=== PATIENT | female | born 1960 | race Caucasian/White ===

== ENCOUNTER 2019-08-11 14:43 | Outpatient (CLI) | payer OTHER, SELFPAY ==
[2019-08-11 15:10] LABS: Influenza Control Valid (Valid)
== END 2019-08-11 14:44 | disposition home or self-care (01) ==
LOC: CHSLAB 14:46
PROVIDERS: PCP Family Medicine; Visit Provider Family Medicine
DX: R68.89 Other general symptoms and signs (principal)
CPT/HCPCS: 87804

== ENCOUNTER 2019-12-09 14:08 | Outpatient (CLI) | payer OTHER, SELFPAY ==
--- NOTE | ~2019-12-09 | MM_ITS ---
EXAMINATION: MM screening cyndi BI w christine HISTORY: Screening mammogram TECHNIQUE: Craniocaudal and mediolateral oblique 3-D tomosynthesis images were obtained and synthetic 2-D images were generated. CAD analysis was submitted and interpreted. COMPARISON: Comparison to multiple prior studies sequentially, with oldest reviewed study dated 10/27. BREAST PARENCHYMAL COMPOSITION: There are scattered areas of fibroglandular density. FINDINGS: There are stable benign rest calcifications and bilateral breast nodules. There is no evide nce of suspicious mass, calcification, or architectural distortion to suggest malignancy in either br east. There has been no suspicious interval change. IMPRESSION: 1. No mammographic evidence of malignancy. 2. Recommend routine screening mammography in one year. BI-RADS Category 2: Benign finding(s). Reviewed, dictated and finalized at location A.
== END 2019-12-09 14:09 | disposition home or self-care (01) ==
LOC: CHSIMG 14:09
PROVIDERS: PCP Family Medicine; Visit Provider Family Medicine
DX: Z12.31 Encounter for screening mammogram for malignant neoplasm of breast (principal)
CPT/HCPCS: 77063; 77067

== ENCOUNTER 2020-01-23 15:31 | Emergency (ER) | payer OTHER, SELFPAY ==
[2020-01-23 15:35] VITALS: BP 157/75; PULSE 89; RESP 15; TEMP 37.1; O2SAT 95
--- NOTE | 2020-01-23 16:11 | ED.GENADULT ---
HPI - General Adult General Chief complaint: Ear Stated complaint: facial swelling Source: patient Mode of arrival: ambulatory Limitations: no limitations History of Present Illness HPI narrative: 59 y.o. diabetic has had right ear pain, onset 5 - 6 days ago. She also c/o pain in front of jaw, left frontal and maxillary sinus area, onset yesterday, worse today, #6/10. No fever/chills. No ear d.c. Cipro causes sores in mouth, on hands and stomach. Has occurred after taking ciprofloxacin on several occasions. Pt has chronic neck pain. No longer sees pain doctor. Takes Vicodin 4 -5x/day. Related Data Home Medications Medication Instructions Recorded Confirmed albuterol sulfate 2 puff INHALATION PRN 01/23/20 01/23/20 cetirizine 10 mg PO DAILY 01/23/20 01/23/20 dicyclomine 20 mg PO DAILY 01/23/20 01/23/20 duloxetine 20 mg PO DAILY 01/23/20 01/23/20 hydrocodone-acetaminophen 1 tablet PO PRN 01/23/20 01/23/20 latanoprost 1 drp OPHTHALMIC (EYE) PRN 01/23/20 01/23/20 levothyroxine 50 mcg PO DAILY 01/23/20 01/23/20 liraglutide [Victoza 2-Jonathan] 0.6 mg SUBCUT WEEKLY 01/23/20 01/23/20 lisinopril 20 mg PO DAILY 01/23/20 01/23/20 metformin 500 mg PO DAILY 01/23/20 01/23/20 simvastatin 20 mg PO DAILY 01/23/20 01/23/20 sitagliptin [Januvia] 100 mg PO DAILY 01/23/20 01/23/20 Allergies Allergy/AdvReac Type Severity Reaction Status Date / Time ciprofloxacin Allergy Unknown Unknown Verified 01/23/20 15:48 clarithromycin [From Biaxin] Allergy Unknown Unknown Verified 01/23/20 15:48 doxycycline Allergy Unknown Unknown Verified 01/23/20 15:48 levofloxacin Allergy Unknown Unknown Verified 01/23/20 15:48 Penicillins Allergy Unknown Unknown Verified 01/23/20 15:48 Sulfa (Sulfonamide Allergy Unknown Unknown Verified 01/23/20 15:48 Antibiotics) Review of Systems ENT: Comments: nasal congestion, sneezing. No ear drainage. PMFSH Past Medical History Medical History Asthma Diabetes GERD (gastroesophageal reflux disease) Hyperlipidemia Hypothyroid Family History Family History Father Family history of chronic obstructive pulmonary disease Mother Family history of coronary artery disease Family history of malignant neoplasm Sibling Cerebrovascular accident Social History Social History Smoking status: Never smoker Alcohol intake: current Exam Const: General: no acute distress Orientation/consciousness: patient oriented x3 HENMT: Other: No right auroc;e swelling. Pain with movement of right tragus. Right outer 1/3 of EAC is tender when touched with speculum. No eac canal redness, swelling or d.c. , R TM has normal landmarks. Left EAC and TM with normal landmarkds. Tender right frontal and maxillary sinus. Induration and tenderness, right inferior preauricular area. No redness or warmth. Neck: Neck: normal visual inspection and no lymphadenopathy Course Vital Signs Vital signs: Vital Signs Temperature 37.1 C 01/23/20 15:35 Pulse Rate 89 01/23/20 15:35 Respiratory Rate 15 01/23/20 15:35 Blood Pressure 157/75 H 01/23/20 15:35 Pulse Oximetry 95 01/23/20 15:35 Temperature 36.7 C 01/23/20 17:42 Pulse Rate 83 01/23/20 17:42 Respiratory Rate 20 01/23/20 17:42 Blood Pressure 169/72 H 01/23/20 17:42 Pulse Oximetry 96 01/23/20 17:42 Medical Decision Making MDM Narrative Medical decision making narrative: No ear canal swelling but it is very tender. The infection has not spread to the lobe or tragus, but swelling and tenderness over the angle if the jaw is concerning for early spread. She has sinus tenderness and hx of sinusitis. She may also have sinusitis. Unfortunately, she has a significant reaction to Cipro, and therefore likely other quinolones. Start tx. with antibiotic drops and Augmentin. Pt advised to have close follow up. Differential Diagnosis Differen
[2020-01-23 16:39] LABS: Hematocrit 42.4 % (35.0-49.0); Hemoglobin 13.9 g/dL (12.0-15.0); Mean Corpuscular HGB Conc 32.8 g/dL (32.0-36.0); Mean Corpuscular Hemoglobin 31.2 pg (27.0-31.0); Mean Corpuscular Volume 95.1 fL (78.0-102.0); Mean Platelet Volume 10.2 fl (9.2-11.8); Platelet Count Result 273 K/mm3 (150-420); Red Blood Count 4.46 M/mm3 (4.20-5.40); Red Cell Distribution Width 12.2 % (11.6-14.4)
[2020-01-23 16:49] LABS: Anion Gap 9 mmol/L (8-16); Blood Urea Nitrogen 13 mg/dL (7-18); Calcium 9.8 mg/dL (8.5-10.1); Carbon Dioxide 29 mmol/L (21-32); Chloride 104 mmol/L (98-108); Estimated CRCL calculation 72 ml/min; Estimated Glomerular Filt Rate 58; Glucose 109 mg/dL (70-99); Osmolality Calculated 295 mOsm/kg (285-295); Sodium 142 mmol/L (136-145)
[2020-01-23] MEDS: AMOXICILLIN/CLAVULANATE K 875-125 MG TAB 1 TABLET PO (17:26)
[2020-01-23 17:42] VITALS: BP 169/72; PULSE 83; RESP 20; TEMP 36.7; O2SAT 96
== END 2020-01-23 17:43 | disposition home or self-care (01) ==
PROVIDERS: Emergency Provider Family Medicine; PCP Family Medicine
DX: H60.91 Unspecified otitis externa, right ear (principal); J32.9 Chronic sinusitis, unspecified
CPT/HCPCS: 36415; 80048; 85027; 99283; A9270

== ENCOUNTER 2020-09-10 21:05 | Emergency (ER) | payer OTHER, SELFPAY ==
[2020-09-10 21:26] VITALS: BP 134/73; PULSE 118; RESP 20; TEMP 36.4; O2SAT 95
--- NOTE | 2020-09-10 22:08 | ED.GENADULT ---
HPI - General Adult General Chief complaint: Nausea/Vomiting/Diarrhea Stated complaint: sick to staomach and headache Source: patient Mode of arrival: ambulatory Limitations: no limitations History of Present Illness HPI narrative: Meme is a 59F with a PMH of GERD, HLD, HTN, DMII, and asthma that presented to the ED with abdominal pain, nausea and vomiting. She has been seeing a GI specialist for GERD. She reports a burning pain in her epigastric region as well cramping pain in her RUQ and above the right iliac crest. She reports 8 episodes of NBNB vomiting and a minor headache that came on gradually. No coffee ground emesis, hematemesis, constipation or diarrhea. No fevers, chills, SOB, or CP. Related Data Home Medications Medication Instructions Recorded Confirmed albuterol sulfate 2 puff INHALATION PRN 01/23/20 09/10/20 cetirizine 10 mg PO DAILY 01/23/20 09/10/20 dicyclomine 20 mg PO DAILY 01/23/20 09/10/20 duloxetine 20 mg PO DAILY 01/23/20 09/10/20 hydrocodone-acetaminophen 1 tablet PO PRN 01/23/20 09/10/20 latanoprost 1 drp OPHTHALMIC (EYE) PRN 01/23/20 09/10/20 levothyroxine 50 mcg PO DAILY 01/23/20 09/10/20 lisinopril 20 mg PO DAILY 01/23/20 09/10/20 metformin 1,000 mg PO BID 01/23/20 09/10/20 simvastatin 20 mg PO DAILY 01/23/20 09/10/20 sitagliptin [Januvia] 100 mg PO DAILY 01/23/20 09/10/20 empagliflozin [Jardiance] 25 mg PO DAILY 09/10/20 09/10/20 Allergies Allergy/AdvReac Type Severity Reaction Status Date / Time ciprofloxacin Allergy Unknown Unknown Verified 09/10/20 21:32 clarithromycin [From Biaxin] Allergy Unknown Unknown Verified 09/10/20 21:32 doxycycline Allergy Unknown Unknown Verified 09/10/20 21:32 levofloxacin Allergy Unknown Unknown Verified 09/10/20 21:32 Penicillins Allergy Unknown Unknown Verified 09/10/20 21:32 Sulfa (Sulfonamide Allergy Unknown Unknown Verified 09/10/20 21:32 Antibiotics) latex Allergy Unknown Verified 09/10/20 21:32 Review of Systems Constitutional: Constitutional: Reports no additional constitutional complaints Eyes: Eyes: Reports no additional eye complaints ENT: Reports system reviewed and no additional complaints, except as documented Cardiovascular: Cardiovascular: Reports no additional cardiovascular complaints Respiratory: Respiratory: Reports no additional respiratory complaints Gastrointestinal: Gastrointestinal: Reports as per HPI Genitourinary: Genitourinary: Reports no additional female genitourinary complaints Musculoskeletal: Musculoskeletal: Reports no additional musculoskeletal complaints Integumentary/Breasts: Skin/Breast: Reports system reviewed and no additional complaints, except as docu Neurologic: Reports system reviewed and no additional complaints, except as documented Psychiatric: Psychiatric: Reports no additional psychiatric complaints Endocrine: Endocrine: Reports no additional endocrine complaints Hematologic/Lymphatic: Hematologic/Lymphatic: Reports no additional hematologic/lymphatic complaints Allergic/Immunologic: Allergic/Immunologic: Reports no additional allergic/immunologic complaints [facility] Past Medical History Medical History (Updated 09/10/20 @ 23:12 by Vitor Toledo DO) Asthma Diabetes GERD (gastroesophageal reflux disease) Hyperlipidemia Hypothyroid Family History Family History Father Family history of chronic obstructive pulmonary disease Mother Family history of coronary artery disease Family history of malignant neoplasm Sibling Cerebrovascular accident Social History Social History Smoking status: Never smoker Alcohol intake: current Gender identity (if verbalized by the patient): Female Exam Const: General: alert Orientation/consciousness: patient oriented x3 Limitations: No altered mental status Other: In mild distress. Was hunched over holding a vomit bag HENMT:
[2020-09-10] MEDS: ONDANSETRON INJ 4 MG/2 ML VIAL IV PUSH (22:15)
[2020-09-10] MEDS: SODIUM CHLORIDE 0.9% IV 1,000 ML 999 ML IV CONT (22:15)
[2020-09-10] MEDS: MAG HYDROX/ALUMINUM HYD/SIMETH 30 ML, PHENobarb/HYOSCY/ATROPINE/SCOP 32.4 MG, LIDOCAINE... PO (22:15)
[2020-09-10 22:21] LABS: Basophils Percent Auto 0.9 % (0.0-1.0); Eosinophils Absolute Auto 0.08 K/mm3 (0.02-0.50); Eosinophils Percent Auto 0.7 % (1.0-6.0); Hematocrit 51.3 % (35.0-49.0); Hemoglobin 16.4 g/dL (12.0-15.0); Immature Granulocyte Absolute 0.04 K/mm3 (0.00-0.00); Immature Granulocyte Percent A 0.4 % (0.0-0.0); Lymphocytes Absolute Auto 0.46 K/mm3 (1.10-4.50); Lymphocytes Percent Auto 4.3 % (18.0-42.0); Mean Corpuscular Hemoglobin 30.3 pg (27.0-31.0); Mean Corpuscular Volume 94.8 fL (78.0-102.0); Mean Platelet Volume 11.9 fl (9.2-11.8); Monocytes Absolute Auto 0.36 K/mm3 (0.10-0.90); Monocytes Percent Auto 3.3 % (2.0-11.0); Neutrophils Absolute Auto 9.8 K/mm3 (1.7-7.2); Neutrophils Percent Auto 90.4 % (50.0-70.0); Platelet Count Result 303 K/mm3 (150-420); Red Blood Count 5.41 M/mm3 (4.20-5.40); White Blood Count 10.8 K/mm3 (4.8-10.8)
[2020-09-10 22:37] LABS: Add Urine Microscopic? YES; Appearance Urine Clear (Clear); Bilirubin Urine 1+ (Negative); Blood Urine Negative (Negative); Color Urine Yellow (Yellow); Glucose Urine UA 3+ (Negative); Ketones Urine 1+ (Negative); Leukocyte Esterase Ur Negative (Negative); Nitrate Urine Negative (Negative); Protein Urine Negative (Negative); Urobilinogen Urine 0.2 mg/dL (0.2-1.0); pH Urine 5.5 (5.0-8.0)
[2020-09-10 22:49] LABS: Bacteria Urine Trace /hpf; RBC Urine None seen /hpf (0-2); Squamous Epithelial Cell Urine Few /hpf (Few); WBC Urine None seen /hpf (0-3)
[2020-09-10 22:55] LABS: Alanine Aminotransferase 84 U/L (14-59); Albumin Level 3.8 g/dL (3.4-5.0); Alkaline Phosphatase 65 U/L (46-116); Anion Gap 16 mmol/L (8-16); Aspartate Amino Transferase 58 U/L (15-37); Bilirubin,Total 0.5 mg/dL (0.00-1.00); Blood Urea Nitrogen 26 mg/dL (7-18); Calcium 8.2 mg/dL (8.5-10.1); Carbon Dioxide 20 mmol/L (21-32); Chloride 104 mmol/L (98-108); Estimated CRCL calculation 53 ml/min; Estimated Glomerular Filt Rate 39; Glucose 227 mg/dL (70-99); Lipase 187 U/L (73-393); Osmolality Calculated 301 mOsm/kg (285-295); Potassium 4.5 mmol/L (3.5-5.1); Sodium 140 mmol/L (136-145); Total Protein 7.4 g/dL (6.4-8.2)
[2020-09-10 22:57] LABS: CRP 1.8 mg/dL (0.0-0.9)
[2020-09-10 23:00] LABS: Lactic Acid Reflex 4.3 mmol/L (0.4-2.0)
[2020-09-10 23:19] VITALS: BP 132/84; PULSE 78; RESP 20; TEMP 36.8; O2SAT 98
[2020-09-11 06:21] LABS: Reflex Lactic Acid Yes or No Add Lactic
== END 2020-09-10 23:20 | disposition home or self-care (01) ==
PROVIDERS: Emergency Provider Family Medicine; PCP Family Medicine
DX: K21.9 Gastro-esophageal reflux disease without esophagitis (principal)
CPT/HCPCS: 36415; 80053; 81001; 83605; 83690; 85025; 86140; 96361; 96374; 99283; 99284; A9270; J2405; J7030

== ENCOUNTER 2020-10-22 15:02 | Emergency (ER) | payer OTHER, SELFPAY ==
[2020-10-22 15:15] VITALS: BP 146/84; PULSE 90; RESP 16; TEMP 36.8; O2SAT 97
[2020-10-22 15:39] LABS: Add Urine Microscopic? YES; Appearance Urine Clear (Clear); Bilirubin Urine Negative (Negative); Blood Urine Negative (Negative); Color Urine Yellow (Yellow); Glucose Urine UA 3+ (Negative); Ketones Urine Negative (Negative); Leukocyte Esterase Ur Negative LEU/UL (Negative); Nitrate Urine Negative (Negative); Protein Urine Negative (Negative); Specific Grav Ur 1.015 (1.010-1.020); Urobilinogen Urine 0.2 mg/dL (0.2-1.0)
[2020-10-22 15:42] LABS: Bacteria Urine None seen /hpf; RBC Urine 0-2 /hpf (0-2); Squamous Epithelial Cell Urine Few /hpf (Few); WBC Urine 0-3 /hpf (0-3)
--- NOTE | 2020-10-22 17:01 | ED.GENADULT ---
HPI - General Adult General Chief complaint: Urogenital-Female Stated complaint: Bladder infection,high BS Time Seen by Provider: 10/22/20 15:25 Source: patient Mode of arrival: ambulatory Limitations: no limitations History of Present Illness HPI narrative: Meme comes in with complaints of feeling like she has a urinary tract infection with dysuria, urgency, and frequency which she says is moderately severe to severe, and ongoing, not relieved by measures taken at home. This has gone on for 24 hours, and she has been quite aggravated by it. She comes in because she does not believe she is getting any better. Related Data Home Medications Medication Instructions Recorded Confirmed albuterol sulfate 2 puff INHALATION PRN 01/23/20 09/10/20 cetirizine 10 mg PO DAILY 01/23/20 09/10/20 dicyclomine 20 mg PO DAILY 01/23/20 09/10/20 duloxetine 20 mg PO DAILY 01/23/20 09/10/20 hydrocodone-acetaminophen 1 tablet PO PRN 01/23/20 09/10/20 latanoprost 1 drp OPHTHALMIC (EYE) PRN 01/23/20 09/10/20 levothyroxine 50 mcg PO DAILY 01/23/20 09/10/20 lisinopril 20 mg PO DAILY 01/23/20 09/10/20 metformin 1,000 mg PO BID 01/23/20 09/10/20 simvastatin 20 mg PO DAILY 01/23/20 09/10/20 sitagliptin [Januvia] 100 mg PO DAILY 01/23/20 09/10/20 empagliflozin [Jardiance] 25 mg PO DAILY 09/10/20 09/10/20 Allergies Allergy/AdvReac Type Severity Reaction Status Date / Time ciprofloxacin Allergy Unknown Unknown Verified 09/10/20 21:32 clarithromycin [From Biaxin] Allergy Unknown Unknown Verified 09/10/20 21:32 doxycycline Allergy Unknown Unknown Verified 09/10/20 21:32 levofloxacin Allergy Unknown Unknown Verified 09/10/20 21:32 Penicillins Allergy Unknown Unknown Verified 09/10/20 21:32 Sulfa (Sulfonamide Allergy Unknown Unknown Verified 09/10/20 21:32 Antibiotics) latex Allergy Unknown Verified 09/10/20 21:32 Review of Systems Constitutional: Constitutional: Reports no additional constitutional complaints Eyes: Eyes: Reports no additional eye complaints ENT: Reports system reviewed and no additional complaints, except as documented Cardiovascular: Cardiovascular: Reports no additional cardiovascular complaints Respiratory: Respiratory: Reports no additional respiratory complaints Gastrointestinal: Gastrointestinal: Reports no additional gastrointestinal complaints Genitourinary: Genitourinary: Reports no additional female genitourinary complaints Musculoskeletal: Musculoskeletal: Reports no additional musculoskeletal complaints Integumentary/Breasts: Skin/Breast: Reports system reviewed and no additional complaints, except as docu Neurologic: Reports system reviewed and no additional complaints, except as documented Psychiatric: Psychiatric: Reports no additional psychiatric complaints Endocrine: Endocrine: Reports no additional endocrine complaints Hematologic/Lymphatic: Hematologic/Lymphatic: Reports no additional hematologic/lymphatic complaints Allergic/Immunologic: Allergic/Immunologic: Reports no additional allergic/immunologic complaints [facility] Past Medical History Medical History (Updated 10/23/20 @ 07:51 by Eduardo York MD) Asthma Diabetes GERD (gastroesophageal reflux disease) Hyperlipidemia Hypothyroid Surgical History Surgical History (Updated 10/23/20 @ 07:44 by Eduardo York MD) No significant past surgical history Family History Family History Father Family history of chronic obstructive pulmonary disease Mother Family history of coronary artery disease Family history of malignant neoplasm Sibling Cerebrovascular accident Social History Social History Smoking status: Never smoker Alcohol intake: current Gender identity (if verbalized by the patient): Female Exam Const: General: no acute distress and alert Orientation/consciousness: patient oriented x3 HENMT: Head: normal to inspec
[2020-10-22 17:31] VITALS: RESP 20
[2020-10-27 11:09] LABS: Glucose Point of Care 120 mg/dl (65-105)
== END 2020-10-22 17:33 | disposition home or self-care (01) ==
PROVIDERS: Emergency Provider Emergency Medicine; PCP Family Medicine
DX: N76.0 Acute vaginitis (principal)
CPT/HCPCS: 81001; 82948; 87077; 87086; 87088; 87186; 99283

== ENCOUNTER 2022-07-10 18:20 | Emergency (ER) | payer OTHER, SELFPAY ==
[2022-07-10] VITALS (8 sets, daily range): BP systolic 123–141; BP diastolic 74–84; PULSE 72–120; RESP 20–22; TEMP 36.6–37.3; O2SAT 93–97
--- NOTE | ~2022-07-10 | CT_ITS ---
EXAMINATION: CTA chest PE protocol DATE: 07/10/2022 20:12 INDICATION: Shortness of breath. TECHNIQUE: Computed tomography angiography (CTA) of the chest was performed with 100 mL Omnipaque-350 intravenous contrast timed to evaluate the pulmonary arteries. Coronal maximum intensity projection 3D-reconstructions were created by the technologist. Automated exposure control and iterative reconst ruction technique were employed. The dose-length product was 771.38 mGy-cm. COMPARISON: CT abdomen 08/02/2016 FINDINGS: There is mild scarring in paraspinal right lower lobe. There is mild peripheral scarring in right lung, which may be radiation fibrosis. No pleural effusion. The heart size is normal. There ar e coronary artery calcifications. No pericardial effusion. There is a pulmonary embolus in left lung lower lobe. There is severe cervical spondylosis and moderate thoracic spondylosis. IMPRESSION: 1. Pulmonary embolus in left lung lower lobe. I called this result to Dr. Devries. Reviewed, dictated and finalized at location A. URCE ENGINEER IMPRESSION: 1. Pulmonary embolus in left lung lower lobe. I called this result to Dr. Puma jewell.
[2022-07-10 18:31] LABS: Glucose Point of Care 137 mg/dl (65-105)
--- NOTE | 2022-07-10 18:50 | ECG_ITS ---
Measurements Intervals Donovan Rate: 100 P: 47 WA: 160 QRS: 6 QRSD: 134 T: 22 QT: 383 QTc: 494 Interpretive Statements SINUS TACHYCARDIA INDETERMINATE AXIS RIGHT BUNDLE BRANCH BLOCK [120+ ms QRS DURATION, UPRIGHT V1, 40+ ms S IN I/aVL/V4/V5/V6] ABNORMAL ECG NO PREVIOUS ECG AVAILABLE FOR COMPARISON Electronically Signed On 07-11-2022 10:13:41 [facility] NURSE by Miguel Henry M.D.
--- NOTE | 2022-07-10 18:52 | ED.GENADULT ---
HPI - General Adult General Chief complaint: Unspecified Stated complaint: sinus congestion, shortness of breath Time Seen by Provider: 07/10/22 18:49 Source: patient Mode of arrival: ambulatory Limitations: no limitations History of Present Illness HPI narrative: 51-year-old asthmatic complains of cough for the last week. COUGHING UP YELLOW SPUTUM without hemoptysis. She had some sneezing denies any nausea or diarrhea. She had vomited twice last night. A runny nose and this and some ringing in her years. She has history of asthma has been out of her meter dose inhaler. Denies any heart disease or other heart or lung disease has never had any venous thromboembolism. She has had COVID in the past but not been vaccinated. Complains of little left lower back pain. She has been little short of breath. She is on Vicodin for chronic back pain scoliosis spina bifida. Has a history of breast cancer in the distant past treated with radiation and surgery also has a history of GERD diabetes. Her primary care doctor was Dr. Mackey now she spit switching over to [facility] nurse practitioner. Denies any fever abdominal pain rash or itching bleeding or bruising problems walking or talking seeing or hearing numbness or weakness. Denies any other complaints. Related Data Home Medications Medication Instructions Recorded Confirmed albuterol sulfate 90 mcg/actuation 2 puff inhalation PRN 01/23/20 07/10/22 aerosol inhaler cetirizine 10 mg tablet 10 mg PO DAILY 01/23/20 07/10/22 duloxetine 20 mg capsule,delayed 20 mg PO DAILY 01/23/20 07/10/22 release hydrocodone 5 mg-acetaminophen 325 1 tablet PO PRN 01/23/20 07/10/22 mg tablet latanoprost 0.005 % eye drops 1 drp ophthalmic (eye) PRN 01/23/20 07/10/22 levothyroxine 50 mcg tablet 88 mcg PO DAILY 01/23/20 07/10/22 lisinopril 20 mg tablet 20 mg PO DAILY 01/23/20 07/10/22 metformin 500 mg tablet 1,000 mg PO BID 01/23/20 07/10/22 simvastatin 20 mg tablet 20 mg PO DAILY 01/23/20 07/10/22 empagliflozin 25 mg tablet 25 mg PO DAILY 09/10/20 07/10/22 (Jardiance) anastrozole 1 mg tablet 1 mg PO DAILY 07/10/22 07/10/22 bimatoprost 0.01 % eye drops 1 drp EACH EYE HS 07/10/22 07/10/22 (Edyta) cyclobenzaprine 10 mg tablet 10 mg PO HS 07/10/22 07/10/22 diclofenac potassium 50 mg tablet 50 mg PO BID 07/10/22 07/10/22 dorzolamide 22.3 mg-timolol 6.8 1 drp EACH EYE BID 07/10/22 07/10/22 mg/mL eye drops famotidine 40 mg tablet 40 mg PO DAILY 07/10/22 07/10/22 gabapentin 100 mg capsule 100 mg PO BID 07/10/22 07/10/22 insulin glargine 100 unit/mL (3 6 unit subcut HS 07/10/22 07/10/22 mL) subcutaneous pen (Lantus Solostar U-100 Insulin) meloxicam 7.5 mg tablet 7.5 mg PO DAILY 07/10/22 07/10/22 Allergies Allergy/AdvReac Type Severity Reaction Status Date / Time ciprofloxacin Allergy Unknown Unknown Verified 07/10/22 18:31 clarithromycin [From Biaxin] Allergy Unknown Unknown Verified 07/10/22 18:31 doxycycline Allergy Unknown Unknown Verified 07/10/22 18:31 levofloxacin Allergy Unknown Unknown Verified 07/10/22 18:31 Penicillins Allergy Unknown Unknown Verified 07/10/22 18:31 Sulfa (Sulfonamide Allergy Unknown Unknown Verified 07/10/22 18:31 Antibiotics) latex Allergy Unknown Verified 07/10/22 18:31 Review of Systems Constitutional: Constitutional: Reports as per HPI, Reports no additional constitutional complaints, Denies fatigue, Denies fever(s), Denies frequent falls, Denies headache(s), Denies increased appetite, Denies lethargy, Denies malaise, Denies night sweats, Denies poor appetite and Denies weakness Eyes: Eyes: Reports as per HPI ENT: Reports system reviewed and no additional complaints, except as documented, Reports as per HPI and Denies dizziness Cardiovascular: Cardiovascular: Reports as per HPI, Reports no additional cardiovascular complaints, Denies leg edema and Denies lightheadedness Respiratory: Respiratory: Reports as per HPI and Reports no additional respiratory
[2022-07-10] MEDS: ALBUTEROL SULFATE (*SP) INHALER 2 PUFF INHALATION (19:07)
[2022-07-10 19:11] LABS: Hematocrit 45.8 % (35.0-49.0); Hemoglobin 15.2 g/dL (12.0-15.0); Mean Corpuscular HGB Conc 33.2 g/dL (32.0-36.0); Mean Corpuscular Hemoglobin 31.3 pg (27.0-31.0); Mean Corpuscular Volume 94.2 fL (78.0-102.0); Mean Platelet Volume 10.2 fl (9.2-11.8); Platelet Count Result 258 K/mm3 (150-420); Red Blood Count 4.86 M/mm3 (4.20-5.40); Red Cell Distribution Width 13.3 % (11.6-14.4); White Blood Count 8.1 K/mm3 (4.8-10.8)
[2022-07-10 19:26] LABS: Partial Thromboplastin Time 27.1 SEC (23.90-30.70); Prothrombin Time 10.9 Seconds (9.50-12.10)
[2022-07-10 19:29] LABS: Alanine Aminotransferase 106 U/L (14-59); Albumin Level 3.7 g/dL (3.4-5.0); Alkaline Phosphatase 82 U/L (46-116); Anion Gap 14 mmol/L (8-16); Aspartate Amino Transferase 90 U/L (15-37); Bilirubin,Total 0.4 mg/dL (0.00-1.00); Blood Urea Nitrogen 22 mg/dL (7-18); Calcium 9.4 mg/dL (8.5-10.1); Carbon Dioxide 23 mmol/L (21-32); Chloride 103 mmol/L (98-108); D Dimer 0.93 mg/L (0.19-0.50); Estimated CRCL calculation 59 ml/min; Estimated Glomerular Filt Rate 48; Glucose 166 mg/dL (70-99); Osmolality Calculated 297 mOsm/kg (285-295); Potassium 4.2 mmol/L (3.5-5.1); Sodium 140 mmol/L (136-145); Total Protein 7.8 g/dL (6.4-8.2); Troponin I 6.1 ng/L (0.00-60.4)
[2022-07-10 19:47] LABS: Influenza A QL RT-PCR Negative (Negative); Influenza B QL RT-PCR Negative (Negative); SARS-CoV-2 RNA PCR Negative (Negative)
[2022-07-10 19:57] LABS: RSV RNA, RT-PCR Negative (Negative)
[2022-07-10] MEDS: IPRATROPIUM 0.5 MG/ALBUTEROL SULFATE 2.5 MG AMPUL.NEB 3 ML INHALATION (20:07)
[2022-07-10] MEDS: RIVAROXABAN 10 MG TABLET 20 MG (20:56)
== END 2022-07-10 21:36 | disposition home or self-care (01) ==
PROVIDERS: Emergency Provider Emergency Medicine
DX: I26.99 Other pulmonary embolism without acute cor pulmonale (principal); J45.909 Unspecified asthma, uncomplicated; E11.9 Type 2 diabetes mellitus without complications; E78.5 Hyperlipidemia, unspecified; E03.9 Hypothyroidism, unspecified; Z79.891 Long term (current) use of opiate analgesic; Z79.4 Long term (current) use of insulin; Z20.822 Contact with and (suspected) exposure to COVID-19
CPT/HCPCS: 36415; 71275; 80053; 82948; 84484; 85027; 85380; 85610; 85730; 87637; 93005; 94640; 99284; A9270; Q9967

== ENCOUNTER 2022-09-23 13:58 | Outpatient (RCR) | payer OTHER, SELFPAY ==
--- NOTE | 2022-09-23 15:03 | PTOPEVAL1 ---
Assessment and note entered by [facility] Evaluation Information Assessment Status Evaluation Diagnosis decreased functional mobility Subjective Information Pt. reports she developed breast cancer about 1 1/ 2 years ago. She reports she developed sharp pain in her right hip over the recent years as well. She reports that she can stand for a total of 10 minutes before having to sit down. She reports that she has 4 steps to get into her home, but states that she has difficulty and feels she may fall on them. She reports that she is still doing her grocery shopping, but does use the electric scooter supplied by the store. She reports that stepping off curbs is difficult and has almost falling doing them. She states that she is not using a walker or a cane. She reports that pain and balance are both currently an issue limiting. Pt. reports that she does have her who helps with household duties. She states that she still drives, but has trouble with long distance driving. She is taking vicodin for pain 2x/day. She reports her goal is to improve her balance and reduce her pain. Reported Pain Level Pain Score 8: Self Report Assessment PT Clinical Summary Pt. is a 62 year female who enters the clinic with generalized weakness and impaired balance. She presents with impaired gait, l.e. weakness, impaired balance and pain on this date. Continued skilled PT is indicated in order to improve these areas to allow for improved safety and efficiency with IADL's. Plan of Care Interventions Electrical Stimulation,Gait Training,Hot Pack/Cold Pack,Manual Therapy,Neuro Re-education,Patient/ Caregiver Educati,Therapeutic Activities, Therapeutic Exercise,Self-Care/Home Management PT Services Indicated Yes Treatment Frequency and 3x/week x 12 visits Duration These treatments will address the objective and functional deficits as defined above. The patient will be advanced safely and appropriately in order for the patient to progress towards his/her prior level of function. Additional exercises will be introduced and as well as a comprehensive home exercise program upon discharge, if needed, ?to ensure carryover of functional gains achieved in the clinic. This treatment plan has been reviewed and agreement upon by the patient.
== END 2022-09-25 15:24 | disposition home or self-care (01) ==
LOC: CHSPT 13:58
DX: R26.89 Other abnormalities of gait and mobility (principal)
CPT/HCPCS: 97110; 97112; 97161; 97530

== ENCOUNTER 2023-04-21 18:06 | Emergency (ER) | payer OTHER, SELFPAY ==
[2023-04-21 18:06] VITALS: BP 161/80; PULSE 104; RESP 20; TEMP 36.7; O2SAT 96
--- NOTE | 2023-04-21 18:14 | ED.SKABFB ---
HPI - Skin/Abscess/Foreign Bdy General Chief complaint: Skin/Abscess/Foreign Body Stated complaint: CELLULITIS History of Present Illness HPI narrative: Patient is a 59 year old female with history of PE, GERD, HLD, HTN, DM, Asthma here with rash. Patient notes that over the last 1 week she developed several lesions on her arms. She notes one lesion on her left arm and 2 lesions on her right arm. She notes they are very pruritic. She has attempted multiple interventions at home including Benadryl, topical steroids, triple antibiotic ointment. Today she contacted her primary care doctor who recommended she come to the clinic for evaluation however due to limited transportation she noted that she could not go there. They then advised that she come to the emergency department for evaluation instead. She denies any fever or chills. She does note that the 2 lesions on her right upper arm have had some overlying crusting drainage which she describes as looking like dried out oatmeal . She additionally complains of some chronic alternating ear pain, worse on the right side today. This seems to be associated with some sinus pressure. She notes she has seen her PCP and an ENT for this same reason in the past, she never received a formal diagnosis. Related Data Home Medications Medication Instructions Recorded Confirmed albuterol sulfate 90 mcg/actuation 2 puff inhalation PRN 01/23/20 07/10/22 aerosol inhaler cetirizine 10 mg tablet 10 mg PO DAILY 01/23/20 07/10/22 duloxetine 20 mg capsule,delayed 20 mg PO DAILY 01/23/20 07/10/22 release hydrocodone 5 mg-acetaminophen 325 1 tablet PO PRN 01/23/20 07/10/22 mg tablet latanoprost 0.005 % eye drops 1 drp ophthalmic (eye) PRN 01/23/20 07/10/22 levothyroxine 50 mcg tablet 88 mcg PO DAILY 01/23/20 07/10/22 lisinopril 20 mg tablet 20 mg PO DAILY 01/23/20 07/10/22 metformin 500 mg tablet 1,000 mg PO BID 01/23/20 07/10/22 simvastatin 20 mg tablet 20 mg PO DAILY 01/23/20 07/10/22 empagliflozin 25 mg tablet 25 mg PO DAILY 09/10/20 07/10/22 (Jardiance) anastrozole 1 mg tablet 1 mg PO DAILY 07/10/22 07/10/22 bimatoprost 0.01 % eye drops 1 drp EACH EYE HS 07/10/22 07/10/22 (Edyta) cyclobenzaprine 10 mg tablet 10 mg PO HS 07/10/22 07/10/22 diclofenac potassium 50 mg tablet 50 mg PO BID 07/10/22 07/10/22 dorzolamide 22.3 mg-timolol 6.8 1 drp EACH EYE BID 07/10/22 07/10/22 mg/mL eye drops famotidine 40 mg tablet 40 mg PO DAILY 07/10/22 07/10/22 gabapentin 100 mg capsule 100 mg PO BID 07/10/22 07/10/22 insulin glargine 100 unit/mL (3 6 unit subcut HS 07/10/22 07/10/22 mL) subcutaneous pen (Lantus Solostar U-100 Insulin) meloxicam 7.5 mg tablet 7.5 mg PO DAILY 07/10/22 07/10/22 Allergies Allergy/AdvReac Type Severity Reaction Status Date / Time ciprofloxacin Allergy Unknown Unknown Verified 04/21/23 18:35 clarithromycin [From Biaxin] Allergy Unknown Unknown Verified 04/21/23 18:35 doxycycline Allergy Unknown Unknown Verified 04/21/23 18:35 levofloxacin Allergy Unknown Unknown Verified 04/21/23 18:35 Penicillins Allergy Unknown Unknown Verified 04/21/23 18:35 Sulfa (Sulfonamide Allergy Unknown Unknown Verified 04/21/23 18:35 Antibiotics) latex Allergy Unknown Verified 04/21/23 18:35 Review of Systems Review of Systems: All systems reviewed & are unremarkable except as noted in HPI and below PMFSH Past Medical History Medical History (Updated 04/21/23 @ 19:08 by Jennifer Reyna MD) Asthma Diabetes GERD (gastroesophageal reflux disease) Hyperlipidemia Hypothyroid Surgical History Surgical History (Updated 10/23/20 @ 07:44 by Eduardo York MD) No significant past surgical history Family History Family History Father Family history of chronic obstructive pulmonary disease Mother Family history of coronary artery disease Family history of malignant neoplasm Sibling Cerebrovascular accident Social History Soc
[2023-04-21] MEDS: CLINDAMYCIN HCL 150 MG CAP 450 MG PO (19:19)
[2023-04-21 19:23] VITALS: BP 142/81; PULSE 95; RESP 18; TEMP 36.6; O2SAT 96
== END 2023-04-21 19:26 | disposition home or self-care (01) ==
PROVIDERS: Emergency Provider Student in an Organized Health Care Education/Training Program
DX: L01.00 Impetigo, unspecified (principal); B96.89 Other specified bacterial agents as the cause of diseases classified elsewhere; E78.5 Hyperlipidemia, unspecified; I10 Essential (primary) hypertension; E11.9 Type 2 diabetes mellitus without complications; J45.909 Unspecified asthma, uncomplicated
CPT/HCPCS: 99283; A9270

== ENCOUNTER 2023-09-03 18:34 | Emergency (ER) | payer OTHER, SELFPAY ==
[2023-09-03 18:35] VITALS: BP 143/78; PULSE 85; RESP 20; TEMP 37.2; O2SAT 98
--- NOTE | 2023-09-03 19:05 | ED.EAR ---
HPI - Ear Problem General Chief complaint: Ear Stated complaint: L JAW SWELLING Time Seen by Provider: 09/03/23 18:52 Source: patient Mode of arrival: ambulatory Limitations: no limitations History of Present Illness HPI Narrative: 62-year-old female with a history of hypertension, diabetes mellitus, hypothyroidism, GERD, breast cancer status post lobectomy/RT presents to the ER with a 3 day history of -- bilateral ear pain. No discharge. No fever or chills. MD Complaint: ear pain Location: bilateral Duration: constant Severity: mild Relieving factors: nothing Exacerbating factors: nothing Discharge from ear: Reports no Related Data Home Medications Medication Instructions Recorded Confirmed albuterol sulfate 90 mcg/actuation 2 puff inhalation PRN 01/23/20 09/03/23 aerosol inhaler cetirizine 10 mg tablet 10 mg PO DAILY 01/23/20 09/03/23 duloxetine 20 mg capsule,delayed 20 mg PO DAILY 01/23/20 09/03/23 release levothyroxine 50 mcg tablet 88 mcg PO DAILY 01/23/20 09/03/23 lisinopril 20 mg tablet 20 mg PO DAILY 01/23/20 09/03/23 metformin 500 mg tablet 1,000 mg PO BID 01/23/20 09/03/23 simvastatin 20 mg tablet 20 mg PO DAILY 01/23/20 09/03/23 empagliflozin 25 mg tablet 25 mg PO DAILY 09/10/20 09/03/23 (Jardiance) anastrozole 1 mg tablet 1 mg PO DAILY 07/10/22 09/03/23 bimatoprost 0.01 % eye drops 1 drp EACH EYE HS 07/10/22 09/03/23 (Lumigan) dorzolamide 22.3 mg-timolol 6.8 1 drp EACH EYE BID 07/10/22 09/03/23 mg/mL eye drops famotidine 40 mg tablet 40 mg PO DAILY 07/10/22 09/03/23 insulin glargine 100 unit/mL (3 6 unit subcut HS 07/10/22 09/03/23 mL) subcutaneous pen (Lantus Solostar U-100 Insulin) Allergies Allergy/AdvReac Type Severity Reaction Status Date / Time ciprofloxacin Allergy Unknown Unknown Verified 09/03/23 18:42 clarithromycin [From Biaxin] Allergy Unknown Unknown Verified 09/03/23 18:42 doxycycline Allergy Unknown Unknown Verified 09/03/23 18:42 levofloxacin Allergy Unknown Unknown Verified 09/03/23 18:42 Penicillins Allergy Unknown Unknown Verified 09/03/23 18:42 Sulfa (Sulfonamide Allergy Unknown Unknown Verified 09/03/23 18:42 Antibiotics) latex Allergy Unknown Verified 09/03/23 18:42 Review of Systems Review of Systems: All systems reviewed & are unremarkable except as noted in HPI and below Constitutional: Constitutional: Reports as per HPI and Reports no additional constitutional complaints Eyes: Eyes: Reports as per HPI and Reports no additional eye complaints ENT: Reports system reviewed and no additional complaints, except as documented and Reports as per HPI Comments: Dental pain the left lower molar Cardiovascular: Cardiovascular: Reports as per HPI and Reports no additional cardiovascular complaints Respiratory: Respiratory: Reports as per HPI and Reports no additional respiratory complaints Gastrointestinal: Gastrointestinal: Reports as per HPI and Reports no additional gastrointestinal complaints Genitourinary: Genitourinary: Reports no additional female genitourinary complaints and Reports as per HPI Musculoskeletal: Musculoskeletal: Reports no additional musculoskeletal complaints and Reports as per HPI Integumentary/Breasts: Skin/Breast: Reports system reviewed and no additional complaints, except as docu and Reports as per HPI Neurologic: Reports system reviewed and no additional complaints, except as documented and Reports as per HPI Psychiatric: Psychiatric: Reports no additional psychiatric complaints and Reports as per HPI Endocrine: Endocrine: Reports no additional endocrine complaints and Reports as per HPI Hematologic/Lymphatic: Hematologic/Lymphatic: Reports no additional hematologic/lymphatic complaints and Reports as per HPI Allergic/Immunologic: Allergic/Immunologic: Reports no additional allergic/immunologic complaints and Reports as per HPI PMFSH Past Medical History Medical History (Reviewed 09/03/23 @ 19:19 by Chris Olivo
--- NOTE | 2023-09-03 19:12 | PC.NURSE ---
PATIENT REPORT RECEIVED FROM SANGEETA MILLIGAN FOR CONTINUATION OF CARE FROM DAY SHIFT.
[2023-09-03 19:28] LABS: Glucose Point of Care 108 mg/dl (65-105)
--- NOTE | 2023-09-03 19:31 | PC.NURSE ---
DR. LINCOLN AT PATIENT BEDSIDE SPEAKING WITH PATIENT REGARDING RESULTS AND PLAN.
== END 2023-09-03 19:44 | disposition home or self-care (01) ==
PROVIDERS: Emergency Provider Internal Medicine Critical Care Medicine
DX: M26.623 Arthralgia of bilateral temporomandibular joint (principal); E11.9 Type 2 diabetes mellitus without complications; E78.5 Hyperlipidemia, unspecified; E03.9 Hypothyroidism, unspecified; J45.909 Unspecified asthma, uncomplicated; K21.9 Gastro-esophageal reflux disease without esophagitis; Z79.51 Long term (current) use of inhaled steroids; Z79.84 Long term (current) use of oral hypoglycemic drugs; Z79.4 Long term (current) use of insulin
CPT/HCPCS: 82948; 99282

== ENCOUNTER 2023-12-03 19:23 | Emergency (ER) | payer OTHER, SELFPAY ==
[2023-12-03 19:24] VITALS: BP 159/76; PULSE 92; RESP 18; TEMP 36.5; O2SAT 94
--- NOTE | 2023-12-03 19:30 | ED.EAR ---
HPI - Ear Problem General Chief complaint: Skin/Abscess/Foreign Body Stated complaint: ear pain Time Seen by Provider: 12/03/23 19:30 Source: patient Mode of arrival: ambulatory Limitations: no limitations History of Present Illness HPI Narrative: 63-year-old female with a history of breast cancer status post lobectomy/ RT, GERD, hypertension, diabetes mellitus, dyslipidemia, hypothyroidism presents to the ER with -- Bilateral retroauricular skin thickening /redness/pain-- caused by a very tight eyeglasses. -- Discharge from the skin lesion which is watery. No fever or chills no ear pain /ear discharge. MD Complaint: other ( Bilateral retroauricular pain/redness /swelling) Duration: constant Discharge from ear: Reports no Treatment prior to arrival: other ( patient use Neosporin ointment) Related Data Home Medications Medication Instructions Recorded Confirmed albuterol sulfate 90 mcg/actuation 2 puff inhalation PRN 01/23/20 12/03/23 aerosol inhaler cetirizine 10 mg tablet 10 mg PO DAILY 01/23/20 12/03/23 duloxetine 20 mg capsule,delayed 20 mg PO DAILY 01/23/20 12/03/23 release levothyroxine 50 mcg tablet 88 mcg PO DAILY 01/23/20 12/03/23 lisinopril 20 mg tablet 20 mg PO DAILY 01/23/20 12/03/23 metformin 500 mg tablet 1,000 mg PO BID 01/23/20 12/03/23 simvastatin 20 mg tablet 20 mg PO DAILY 01/23/20 12/03/23 empagliflozin 25 mg tablet 25 mg PO DAILY 09/10/20 12/03/23 (Jardiance) anastrozole 1 mg tablet 1 mg PO DAILY 07/10/22 12/03/23 bimatoprost 0.01 % eye drops 1 drp EACH EYE HS 07/10/22 12/03/23 (Lumigan) dorzolamide 22.3 mg-timolol 6.8 1 drp EACH EYE BID 07/10/22 12/03/23 mg/mL eye drops famotidine 40 mg tablet 40 mg PO DAILY 07/10/22 12/03/23 insulin glargine 100 unit/mL (3 6 unit subcut HS 07/10/22 12/03/23 mL) subcutaneous pen (Lantus Solostar U-100 Insulin) triamcinolone acetonide 0.1 % 1 applic topical BID 12/03/23 12/03/23 topical cream Allergies Allergy/AdvReac Type Severity Reaction Status Date / Time ciprofloxacin Allergy Unknown Unknown Verified 12/03/23 19:43 clarithromycin [From Biaxin] Allergy Unknown Unknown Verified 12/03/23 19:43 doxycycline Allergy Unknown Unknown Verified 12/03/23 19:43 levofloxacin Allergy Unknown Unknown Verified 12/03/23 19:43 Penicillins Allergy Unknown Unknown Verified 12/03/23 19:43 Sulfa (Sulfonamide Allergy Unknown Unknown Verified 12/03/23 19:43 Antibiotics) latex Allergy Unknown Verified 12/03/23 19:43 Review of Systems Review of Systems: All systems reviewed & are unremarkable except as noted in HPI and below Constitutional: Constitutional: Reports as per HPI and Reports no additional constitutional complaints Eyes: Eyes: Reports as per HPI and Reports no additional eye complaints ENT: Reports system reviewed and no additional complaints, except as documented and Reports as per HPI Cardiovascular: Cardiovascular: Reports as per HPI and Reports no additional cardiovascular complaints Respiratory: Respiratory: Reports as per HPI and Reports no additional respiratory complaints Gastrointestinal: Gastrointestinal: Reports as per HPI and Reports no additional gastrointestinal complaints Genitourinary: Genitourinary: Reports no additional female genitourinary complaints and Reports as per HPI Musculoskeletal: Musculoskeletal: Reports no additional musculoskeletal complaints and Reports as per HPI Integumentary/Breasts: Comments: retroauricular cellulitis Neurologic: Reports system reviewed and no additional complaints, except as documented and Reports as per HPI Psychiatric: Psychiatric: Reports no additional psychiatric complaints and Reports as per HPI Endocrine: Endocrine: Reports no additional endocrine complaints and Reports as per HPI Hematologic/Lymphatic: Hematologic/Lymphatic: Reports no additional hematologic/lymphatic complaints and Reports as per HPI Allergic/Immunologic: Allergic/Immunologic: Reports no additio
[2023-12-03] MEDS: CLINDAMYCIN HCL 150 MG CAP 300 MG PO (20:25)
== END 2023-12-03 20:25 | disposition home or self-care (01) ==
PROVIDERS: Emergency Provider Internal Medicine Critical Care Medicine
DX: H60.10 Cellulitis of external ear, unspecified ear (principal); I10 Essential (primary) hypertension; E11.9 Type 2 diabetes mellitus without complications; E78.5 Hyperlipidemia, unspecified; E03.9 Hypothyroidism, unspecified; Z79.899 Other long term (current) drug therapy; Z85.3 Personal history of malignant neoplasm of breast; Z79.4 Long term (current) use of insulin
CPT/HCPCS: 99283; A9270